=== PATIENT | female | born 1965 | race Caucasian/White ===

== ENCOUNTER 2019-02-17 14:52 | Outpatient (CLI) | payer OTHER ==
[~2019-02-17] VITALS: Ht 157.5 cm; Wt 69.5 kg
[2019-02-17 14:50] VITALS: BP 108/67
[~2019-02-17 14:52] MED LIST: CALC-534 PO; CHOL100012 PO; HYDR10TA4 PO; IRON SUCROSE COMPLEX 100MG/5ML IV ONE; LEVO100T5 PO; MELA1TAB15 PO; METF500T12 PO; MULT-758 PO
== END 2019-02-17 23:59 | disposition home or self-care (01) ==
LOC: INFUSION 14:52
PROVIDERS: ATTEND Pathology Hematology
DX: D50.9 Iron deficiency anemia, unspecified (principal); E03.9 Hypothyroidism, unspecified; E11.65 Type 2 diabetes mellitus with hyperglycemia
CPT/HCPCS: 96374; J1756

== ENCOUNTER 2019-02-24 09:50 | Outpatient (CLI) | payer OTHER ==
[~2019-02-24] VITALS: Ht 154.9 cm; Wt 70.5 kg
[~2019-02-24 09:50] MED LIST changes: -IRON SUCROSE COMPLEX 100MG/5ML IV ONE
[2019-02-24] MEDS ORDERED: IRON SUCROSE COMPLEX 100MG/5ML IV ONE (14:30)
[2019-02-24 15:15] VITALS: BP 102/69
== END 2019-02-24 23:59 | disposition home or self-care (01) ==
LOC: INFUSION 09:50
PROVIDERS: ATTEND Pathology Hematology
DX: D50.9 Iron deficiency anemia, unspecified (principal); E11.65 Type 2 diabetes mellitus with hyperglycemia; E03.9 Hypothyroidism, unspecified
CPT/HCPCS: 96374; J1756

== ENCOUNTER → 2019-03-03 | Outpatient (CLI) | payer OTHER ==
[~2019-03-03] VITALS: Ht 154.9 cm; Wt 70.6 kg
[~2019-03-03] MED LIST changes: +IRON SUCROSE COMPLEX 100MG/5ML IV ONE
[2019-03-03 15:00] VITALS: BP 107/71
== END | disposition home or self-care (01) ==
LOC: INFUSION 15:00
PROVIDERS: ATTEND Pathology Hematology
DX: D50.9 Iron deficiency anemia, unspecified (principal); E03.9 Hypothyroidism, unspecified; E11.9 Type 2 diabetes mellitus without complications
CPT/HCPCS: 96374; J1756